=== PATIENT | female | born 1970 | race American Indian/Alaskan Native ===

== ENCOUNTER 2021-11-11 09:33 | Emergency (ER) | payer OTHER ==
[2021-11-11 10:43] VITALS: BP 144/76
--- NOTE | 2021-11-11 10:53 | Emergency Department Report ---
ED General Adult HPI - General Chief complaint: Earache Stated complaint: EARACHE Time Seen by Provider: 11/11/21 10:04 Source: patient Mode of arrival: Ambulatory Limitations: No Limitations - History of Present Illness Initial comments: 50-year-old -[place] female patient presents with complaints of right ear pain x3 weeks. Patient states she was seen by her doctor and prescribed polymyxin eardrops. Patient states she has been using these drops since 11/03/2021 and that her left ear has improved, but her right ear is worsening. She states history of recurrent otitis externa due to scratching of her ears. Patient also states she does follow with ENT. She rates her pain as an 8/10 in severity and states it radiates down into her neck. No swelling of the external ear per patient. Patient states she also has tried peroxide drops without improvement. No known drug allergies per patient. Past medical history includes diabetes Severity scale (0 -10): 5 - Related Data Previous Rx's Medication Instructions Recorded Last Taken Type Acetaminophen/Codeine [Tylenol 1 tab PO Q8H PRN #10 tab 11/11/21 Unknown Rx /Codeine # 3 tab] levoFLOXacin [Levaquin TAB] 500 mg PO QDAY 7 Days #7 tablet 11/11/21 Unknown Rx Allergies Allergy/AdvReac Type Severity Reaction Status Date / Time No Known Allergies Allergy Verified 11/11/21 10:05 ED Review of Systems ROS: Stated complaint: EARACHE Other details as noted in HPI Constitutional: denies: chills, diaphoresis, fever, malaise, other Eyes: denies: eye pain, vision change ENT: ear pain. denies: throat pain Respiratory: denies: cough Cardiovascular: denies: chest pain ED Past Medical Hx - Past Medical History Hx Hypertension: Yes Hx Diabetes: Yes Additional medical history: cholesterol - Surgical History Past Surgical History?: Yes Additional Surgical History: c- section - Social History Smoking Status: Never Smoker Substance Use Type: None - Medications Home Medications: Home Medications Medication Instructions Recorded Confirmed Last Taken Type Acetaminophen/Codeine [Tylenol 1 tab PO Q8H PRN #10 tab 11/11/21 Unknown Rx /Codeine # 3 tab] levoFLOXacin [Levaquin TAB] 500 mg PO QDAY 7 Days #7 tablet 11/11/21 Unknown Rx ED Physical Exam - General Limitations: No Limitations General appearance: alert, in no apparent distress, obese - Head Head exam: Present: atraumatic, normocephalic - Eye Eye exam: Present: normal appearance - ENT ENT exam: Present: other (Tenderness to palpation of the right pinna noted without external swelling or erythema noted) - Expanded ENT Exam Expanded TM/Canal exam: Canal Discharge: Right TM, Canal Tenderness: Right TM (Significant canal swelling noted; unable to visualize tympanic membrane) - Respiratory Respiratory exam: Absent: respiratory distress - Cardiovascular Cardiovascular Exam: Present: regular rate - Neurological Exam Neurological exam: Present: alert, oriented X3 - Psychiatric Psychiatric exam: Present: normal affect, normal mood - Skin Skin exam: Present: warm, dry, intact, normal color. Absent: rash ED Course Vital Signs 11/11/21 11/11/21 11/11/21 10:07 10:10 10:41 Temperature 98.3 F 98.3 F Pulse Rate 74 74 78 Respiratory 18 18 16 Rate Blood Pressure 127/87 Blood Pressure 127/87 144/76 [Right] O2 Sat by Pulse 98 98 100 Oximetry ED Medical Decision Making - Medical Decision Making 50-year-old -[place] female patient presents with complaints of right ear pain x3 weeks. Patient states she was seen by her doctor and prescribed polymyxin eardrops. Patient states she has been using these drops since 11/03/2021 and that her left ear has improved, but her right ear is worsening. She states history of recurrent otitis externa due to scratching of her ears. Patient also states she does follow with ENT. She rates her pain as an 8/10 in severity and states it radiates down into her neck. No swelling of the external ear per patient. Patient states she also has tried peroxide drops without improvement. No known drug allergies per patient. Past medical history includes diabetes Significant swelling of the right ear canal with tenderness noted on exam. Ear wick placed. Patient's Polysporin drops used to expand wick. Patient to have wick removed via ENT within 7 days or return to the ED. Levaquin prescription given. Patient to continue eardrops. Discussed in great detail signs and symptoms that should prompt immediate return to the ED with patient who verbalizes understanding Critical care attestation.: If time is entered above; I have spent that time in minutes in the direct care of this critically ill patient, excluding procedure time. ED Disposition Clinical Impression: Otitis externa Disposition: HOME / SELF CARE / HOMELESS Is pt being admited?: No Condition: Stable Instructions: Otitis Externa Additional Instructions: Please follow-up with your ENT specialist within 5 to 7 days Prescriptions: levoFLOXacin [Levaquin TAB] 500 mg PO QDAY 7 Days #7 tablet Acetaminophen/Codeine [Tylenol /Codeine # 3 tab] 1 tab PO Q8H PRN #10 tab PRN Reason: Pain , Severe (7-10) Referrals: ALIS ESTRADA MD [Staff Physician] - 3-5 Days Forms: Work/School Release Form(ED)
== END 2021-11-11 11:30 | disposition home or self-care (01) ==
LOC: ED 09:33
DX: H60.91 Unspecified otitis externa, right ear (principal); I10 Essential (primary) hypertension; E11.9 Type 2 diabetes mellitus without complications; Z98.890 Other specified postprocedural states
CPT/HCPCS: 99282